=== PATIENT | male | born 1980 | race Caucasian/White ===

== ENCOUNTER 2016-11-13 23:58 | Emergency (ER) | payer OTHER ==
[2016-11-14 00:52] VITALS: BP 109/62; PULSE 71; TEMP 97.9; BMI 27.3
[2016-11-14] MEDS ORDERED: FLUORESCEIN NA 1 EA STRIP OD ONE (00:59)
[2016-11-14] MEDS ORDERED: TETRACAINE 0.5% HCL 0.6ML DROPPER.BOTTLE OD ONE (00:59)
[2016-11-14] MEDS ORDERED: TETRACAINE 0.5% OPHTH SOLN 2 ML BOTTLE ONE (01:01)
[2016-11-14] MEDS ORDERED: FLUORESCEIN NA 1 EA STRIP ONE ×2 (01:01→01:02)
--- NOTE | 2016-11-14 01:21 | PDOC ---
History of Present Illness - General History Source: Patient Exam Limitations: No Limitations <Matthieu Sands - Last Filed: 11/14/16 01:22> - General History Source: Patient Exam Limitations: No Limitations - History of Present Illness Initial Comments: 11/14/16 01:26 The patient is a 36 year old male with a significant past medical history of left eye blepharitis, who presents to the ER with right eye pain for a few days. Patient states he was diagnosed by an eye doctor with blepharitis of the right eye on October 27. He states he has a stye and a cyst on the left eye. Patient comes to the ER with right eye pain, concerned that he may have blepharitis of the right eye. Patient states the discomfort of the right eye is not similar to that of the left. Patient states one of the cysts of the left eye popped earlier today. Patient reports taking polytrim and keflex for the blepharitis. He denies contact lens use. Denies changes in vision Denies headache Denies dizziness Denies discharge from eye <Eugenia Londono - Last Filed: 11/14/16 01:27> - General Chief Complaint: Eye Problem Stated Complaint: EYE PROBLEM Time Seen by Provider: 11/14/16 00:51 Past History - Past Medical History Asthma: Yes - Psycho/Social/Smoking Cessation Hx Anxiety: No Suicidal Ideation: No Smoking History: Never smoked Have you smoked in the past 12 months: Yes Number of Cigarettes Smoked Daily: 3 Hx Alcohol Use: No Drug/Substance Use Hx: Yes (daily) Substance Use Type: Marijuana <Matthieu Sands - Last Filed: 11/14/16 01:22> <Eugenia Londono - Last Filed: 11/14/16 01:27> - Past Medical History Allergies/Adverse Reactions: Allergies Allergy/AdvReac Type Severity Reaction Status Date / Time No Known Allergies Allergy Verified 11/14/16 00:46 Home Medications: Ambulatory Orders Bacitracin/Polymyxin B Sulfate [Polycin Eye Ointment] 3.5 gm OP Q4H #1 applic Cephalexin [Keflex] 500 mg PO QID 11/14/16 Ibuprofen [Motrin -] 600 mg PO QID PRN 11/14/16 Polymyxin B Sulfate/Tmp [Polytrim Opthalmic Solution -] 1 drop OP Q3H #1 drops 11/14/16 Review of Systems - Review of Systems Able to Perform ROS?: Yes Comments:: 11/14/16 01:26 GENERAL/CONSTITUTIONAL: No fever or chills. No weakness. HEAD, EYES, EARS, NOSE AND THROAT: (+) right eye pain. No change in vision. No ear pain or discharge. No sore throat. CARDIOVASCULAR: No chest pain or shortness of breath. RESPIRATORY: No cough, wheezing, or hemoptysis. GASTROINTESTINAL: No nausea, vomiting, diarrhea or constipation. GENITOURINARY: No dysuria, frequency, or change in urination. MUSCULOSKELETAL: No joint or muscle swelling or pain. No neck or back pain. SKIN: No rash NEUROLOGIC: No headache, vertigo, loss of consciousness, or change in strength/ sensation. ENDOCRINE: No increased thirst. No abnormal weight change. HEMATOLOGIC/LYMPHATIC: No anemia, easy bleeding, or history of blood clots. ALLERGIC/IMMUNOLOGIC: No hives or skin allergy. <Eugenia Londono - Last Filed: 11/14/16 01:27> *Physical Exam - Vital Signs Last Vital Signs Temp Pulse Resp BP Pulse Ox 97.9 F 71 16 109/62 98 11/14/16 00:46 11/14/16 00:46 11/14/16 00:46 11/14/16 00:46 11/14/16 00:46 <Matthieu Sands - Last Filed: 11/14/16 01:22> - Vital Signs Last Vital Signs Temp Pulse Resp BP Pulse Ox 97.9 F 71 16 109/62 98 11/14/16 00:46 11/14/16 00:46 11/14/16 00:46 11/14/16 00:46 11/14/16 00:46 - Physical Exam Comments: 11/14/16 01:26 GENERAL: Awake, alert, and fully oriented, in no acute distress HEAD: No signs of trauma EYES: OU 20/10 , No foreign body identified, No stye or blepharitis appreciated , Fluorescein uptake along inferior portion of sclera, No dendritic lesions. PERRLA, EOMI, sclera anicteric, conjunctiva clear ENT: Auricles normal inspection, hearing grossly normal, nares patent, oropharynx clear without exudates. Moist mucosa NECK: Normal ROM, supple, no lymphadenopathy, JVD, or masses LUNGS: Breath sounds equal, clear to auscultation bilaterally. No wheezes, and no crackles HEART: Regular rate and rhythm, normal S1 and S2, no murmurs, rubs or gallops NEUROLOGICAL: Cranial nerves II through XII grossly intact. Normal speech, normal gait SKIN: Warm, Dry, normal turgor, no rashes or lesions noted. <UtsShashia - Last Filed: 11/14/16 01:27> Medical Decision Making - Medical Decision Making 11/14/16 01:16 A portion of this note was documented by scribe services under my direction. I have reviewed the details of the note, within reason, and agree with the documentation with the following case summary and management plan written by me. Patient treated in the ED. Nursing notes are reviewed and incorporated into the medical decision-making. Vital signs reviewed. Peripheral IV access obtained by the nurse, laboratory studies are drawn and sent, reviewed and interpreted by myself. Vital Signs Temp Pulse Resp BP Pulse Ox 97.9 F 71 16 109/62 98 11/14/16 00:46 11/14/16 00:46 11/14/16 00:46 11/14/16 00:46 11/14/16 00:46 36-year-old male with no past medical history presents with right eye irritation. In October 27, patient was having left eye irritation and had developed a left stye and was seen in emergency department. He was encouraged have warm compresses. Was referred to an mult au matic operator where he was diagnosed with blepharitis. He was then placed on Keflex and Polytrim ointment which she is currently taking. However, noted today that he is developing right eye irritation was concerned for blepharitis and came to the ED. He reports she's been rubbing his eye. Patient has no visual acuity changes. He wears no contact lenses. There is no dendritic uptake or Maira sign. He does have abrasion along the sclera concerning for scleral abrasion. We'll encourage patient to Polytrim and his other eye. Patient is appointment with an mult au matic operator in 3 days. He verbalizes understanding agrees with plan. I discussed the physical exam findings, ancillary test results and final diagnoses with the patient. I answered all of the patient's questions. The patient was satisfied with the care received and felt comfortable with the discharge plan and treatment plan. The patient will call their primary care physician within 24 hours to arrange follow-up and will return to the Emergency Department with any new, persistant or worsening symptoms. <Matthieu Sands - Last Filed: 11/14/16 01:22> *DC/Admit/Observation/Transfer - Discharge Dispostion Admit: No <Matthieu Sands - Last Filed: 11/14/16 01:22> - Attestations Scribe Attestion: 11/14/16 01:27 Documentation prepared by Eugenia Londono, acting as back office medical assistant for Matthieu Sands MD. <Eugenia Londono - Last Filed: 11/14/16 01:27> Diagnosis at time of Disposition: Abrasion of sclera of right eye Qualifiers: Encounter type: initial encounter Qualified Code(s): S05.8X1A - Other injuries of right eye and orbit, initial encounter - Discharge Dispostion Disposition: HOME Condition at time of disposition: Improved - Prescriptions Prescriptions: Bacitracin/Polymyxin B Sulfate [Polycin Eye Ointment] 3.5 gm OP Q4H #1 applic Polymyxin B Sulfate/Tmp [Polytrim Opthalmic Solution -] 1 drop OP Q3H #1 drops - Patient Instructions Printed Discharge Instructions: DI for Corneal Abrasion Additional Instructions: Please apply the antibiotic ointment to your eye as prescribed. Follow up with the eye doctor this .
== END 2016-11-14 01:25 | disposition home or self-care (01) ==
LOC: JER 23:58
DX: S05.8X1A Other injuries of right eye and orbit, initial encounter (principal); X58.XXXA Exposure to other specified factors, initial encounter; Y93.9 Activity, unspecified; Y92.039 Unspecified place in apartment as the place of occurrence of the external cause
CPT/HCPCS: 99281-25

== ENCOUNTER 2016-12-13 23:40 | Emergency (ER) | payer OTHER ==
[2016-12-13 23:55] VITALS: BP 123/71; PULSE 74; TEMP 97.5; BMI 28.0
--- NOTE | 2016-12-14 03:18 | PDOC ---
History of Present Illness - General Chief Complaint: Eye Problem Stated Complaint: EYE PROBLEM Time Seen by Provider: 12/14/16 02:25 History Source: Patient Exam Limitations: No Limitations - History of Present Illness Initial Comments: 12/14/16 03:10 36yo Male patient presents to ED c/o right eye pain, swelling and tenderness to face. Patient states he was recently treated by ophthalmology for blepharitis with abx/dextramethasone eye drop but is not having tenderness and mild swelling to cheek bone. He denies fever, trauma, injury, or any other complaints at this time. Past History - Travel Traveled outside of the country in the last 30 days: No Close contact w/someone who was outside of country & ill: No - Past Medical History Allergies/Adverse Reactions: Allergies Allergy/AdvReac Type Severity Reaction Status Date / Time No Known Allergies Allergy Verified 12/13/16 23:55 Home Medications: Ambulatory Orders Bacitracin/Polymyxin B Sulfate [Polycin Eye Ointment] 3.5 gm OP Q4H #1 applic Cephalexin [Keflex] 500 mg PO QID 11/14/16 Ibuprofen [Motrin -] 600 mg PO QID PRN 11/14/16 Polymyxin B Sulfate/Tmp [Polytrim Opthalmic Solution -] 1 drop OP Q3H #1 drops 11/14/16 Amoxicillin/Potassium Clav [Augmentin 875-125 Tablet] 1 each PO Q12H #10 tablet 12/14/16 Asthma: Yes Other medical history: eye problems-bliforiosis - Psycho/Social/Smoking Cessation Hx Anxiety: No Suicidal Ideation: No Smoking History: Current every day smoker Have you smoked in the past 12 months: Yes Number of Cigarettes Smoked Daily: 10 Information on smoking cessation initiated: No Hx Alcohol Use: No Drug/Substance Use Hx: Yes (daily) Substance Use Type: Marijuana Review of Systems - Review of Systems Able to Perform ROS?: Yes Is the patient limited Yakut proficient: No Constitutional: No: Fever HEENTM: Yes: Ear Pain (right). No: Eye Pain, Blurred Vision, Double Vision, Ear Discharge, Nose Congestion, Throat Pain, Throat Swelling, Mouth Pain, Mouth Swelling Respiratory: No: Cough, Orthopnea, Shortness of Breath, Wheezing Cardiac (ROS): No: Chest Pain All Other Systems: Reviewed and Negative *Physical Exam - Vital Signs Last Vital Signs Temp Pulse Resp BP Pulse Ox 97.5 F L 74 18 123/71 99 12/13/16 23:50 12/13/16 23:50 12/13/16 23:50 12/13/16 23:50 12/13/16 23:50 - Physical Exam General Appearance: Yes: Nourished, Appropriately Dressed. No: Apparent Distress, Mild Distress, Moderate Distress, Severe Distress HEENT: positive: EOMI, LEATHA, Normal ENT Inspection, Normal Voice, Symmetrical, TMs Normal, Pharynx Normal, Orbits (Mild Swelling to right inferior maxillary/ orbit bone w/ mild tenderness.). negative: Pharyngeal Erythema, Tonsillar Exudate, Tonsillar Erythema, Nasal Congestion, Rhinorrhea, Sinus Tenderness, TM Bulging, TM Dull, TM Erythema Neck: positive: Trachea midline, Supple. negative: Stridor, Lymphadenopathy (R) , Lymphadenopathy (L) Respiratory/Chest: positive: Lungs Clear, Normal Breath Sounds. negative: Respiratory Distress, Accessory Muscle Use, Labored Respiration, Rapid RR, Rales , Rhonchi, Stridor, Wheezing Cardiovascular: positive: Regular Rhythm, Regular Rate Musculoskeletal: positive: Normal Inspection. negative: CVA Tenderness, Decreased Range of Motion, Vertebral Tenderness Extremity: positive: Normal Capillary Refill, Normal Inspection, Normal Range of Motion. negative: Pedal Edema, Swelling, Calf Tenderness, Erythema, Inflammation Integumentary: positive: Normal Color, Dry, Warm. 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, Fully Oriented, Alert, Normal Mood/ Affect, Normal Response, Motor Strength 5/5 *DC/Admit/Observation/Transfer Diagnosis at time of Disposition: Ear pain, right, Maxillary pain - Discharge Dispostion Disposition: HOME Condition at time of disposition: Stable Admit: No - Prescriptions Prescriptions: Amoxicillin/Potassium Clav [Augmentin 875-125 Tablet] 1 each PO Q12H #10 tablet - Referrals Referrals: Rody Mooney MD [Staff Physician] - - Patient Instructions Printed Discharge Instructions: DI for Ear Pain-Adult Additional Instructions: FOLLOW UP WITH YOUR BENDER MACHINE OPERATOR THIS WEEK FOR FURTHER EVALUATION. CALL TO SCHEDULE APPOINTMENT OR FOLLOW UP WITH DR. ROE. TAKE MEDICATIONS PRESCRIBED. RETURN IF ANY CONCERNS FOR FURTHER EVALUATION. Print Language: SWEDISH - Post Discharge Activity Work/School Note: Back to Work
== END 2016-12-14 03:36 | disposition home or self-care (01) ==
LOC: JER 23:40
DX: H92.01 Otalgia, right ear (principal)
CPT/HCPCS: 99281-25

== ENCOUNTER 2019-01-19 11:05 | Emergency (ER) | payer OTHER ==
[2019-01-19 11:14] VITALS: BP 103/57; PULSE 69; TEMP 97.4; BMI 27.3
[2019-01-19] MEDS ORDERED: IBUPROFEN 400 MG TABLET (FP) PO ONE (11:46)
--- NOTE | 2019-01-19 12:17 | PDOC ---
History of Present Illness - General Chief Complaint: Abscess Boil Stated Complaint: PAIN / CYST Time Seen by Provider: 01/19/19 11:37 Past History - Past Medical History Allergies/Adverse Reactions: Allergies Allergy/AdvReac Type Severity Reaction Status Date / Time No Known Allergies Allergy Verified 01/19/19 11:14 Home Medications: Ambulatory Orders Bacitracin/Polymyxin B Sulfate [Polycin Eye Ointment] 3.5 gm OP Q4H #1 applic Cephalexin [Keflex] 500 mg PO QID 11/14/16 Ibuprofen [Motrin -] 600 mg PO QID PRN 11/14/16 Polymyxin B Sulfate/Tmp [Polytrim Opthalmic Solution -] 1 drop OP Q3H #1 drops 11/14/16 Amoxicillin/Potassium Clav [Augmentin 875-125 Tablet] 1 each PO Q12H #10 tablet 12/14/16 Clindamycin [Cleocin -] 300 mg PO Q8H #21 capsule 01/19/19 L. Rhamnosus GG/Inulin [Culturelle Probiotics Capsule] 1 each PO DAILY #8 capsule 01/19/19 Asthma: Yes COPD: No - Suicide/Smoking/Psychosocial Hx Smoking History: Never smoked Have you smoked in the past 12 months: Yes Number of Cigarettes Smoked Daily: 10 Hx Alcohol Use: No Drug/Substance Use Hx: Yes (daily) Substance Use Type: Marijuana *Physical Exam - Vital Signs Last Vital Signs Temp Pulse Resp BP Pulse Ox 97.4 F L 69 18 103/57 L 99 01/19/19 11:08 01/19/19 11:08 01/19/19 11:08 01/19/19 11:08 01/19/19 11:08 - Physical Exam General Appearance: Yes: Appropriately Dressed, Apparent Distress HEENT: positive: Normal Voice Neck: positive: Supple Respiratory/Chest: negative: Respiratory Distress Extremity: positive: Other (fluctuant mass over R olecranon process, no sig ttp , no hot, red joint, FROMI with no pain) Integumentary: positive: Dry, Warm, Other (2x1cm induration to to gluteal cleft , no overlying erythema) Neurologic: positive: Fully Oriented, Alert, Normal Mood/Affect Procedures - Incision and Drainage I&D Site: Left: Buttock (pilonidal) Anesthesia: 1% Lidocaine Volume(ml): 5 Blade Size: 10 Attempts: 1 (scant pus, mostly blood) Plain Packing: No Dressing: Yes Medical Decision Making - Medical Decision Making 01/19/19 12:20 38 yo male, no sig hx, here w/ multiple complaints including pain/swelling to R elbow after weight lifting 6 days ago. States he lifted more weights than usual. Has been placing both hot and cold packs to site and taking motrin and reports that swelling has greatly improved. Patient also reports having history of pilonidal cyst and that for the past 2 weeks, pain to site has increased. No fever or chills. Also complaining of persistent pain/numbness to L thumb s/p injury 1 month ago where he sustained puncture wound from a pen See exam Pilonidal abscess S/p I&D w/ scant pus No packing placed as wound superficial -tetanus UTD -Dc w/ abx -Wound check as needed -surgery f/u for possible cyst removal R olecranon bursitis in setting of working out Improving w/ warm compresses/NSAID use at home No hot, red joint and no pain to joint w/ ROM to suspect joint effusion or infxn No h/o gout -BRYAN placed -to cont NSAIDs -return as needed Persistent numbness/pain to R thumb s/p puncture wound 1 month ago Exam unremarkable -Dc w/ hand f/u *DC/Admit/Observation/Transfer Diagnosis at time of Disposition: Numbness of left thumb, Pilonidal abscess Bursitis Qualifiers: Bursitis location: elbow Elbow bursitis location: olecranon bursitis Laterality : right Qualified Code(s): M70.21 - Olecranon bursitis, right elbow - Discharge Dispostion Disposition: HOME Condition at time of disposition: Good - Prescriptions Prescriptions: Clindamycin [Cleocin -] 300 mg PO Q8H #21 capsule L. Rhamnosus GG/Inulin [Culturelle Probiotics Capsule] 1 each PO DAILY #8 capsule - Referrals Referrals: Gume Naik MD [Primary Care Provider] - Tito Barnhart MD [Staff Physician] - Jose J Pantoja MD [Staff Physician] - - Patient Instructions Printed Discharge Instructions: Pilonidal Cyst, Bursitis Additional Instructions: You were seen for multiple conditions today: 1) Olecranon (elbow) bursitis. A bursa is a fluid-filled, saclike structure lined by synovial membrane which forms in clefts between mobile structures in the musculoskeletal system. From a simplistic point of view, the deeper bursae serve as "ball bearings," allowing the muscles to glide over each other and over prominences of bone. The more superficial bursae, such as the olecranon, ischial, or prepatellar bursa, serve as "cushions" between the skin and the bone. The term "bursitis" implies inflammation. Treatment is protection joint and NSAIDs such as motrin. Keep Bryan in place for comfort and apply heat to assist with swelling 2) Persistent L thumb numbness/discomfort after old injury. There is no ED intervention needed today. Please follow up with Dr Barnhart of ortho 3) You had a pilinonal abscess drained today. No packing was placed as wound was superficial. Please keep wound covered, clean and dry. You can leave wound covered when crusts form form. Take antibiotics as directed For removal for cyst, follow up with Dr Pantoja of surgery Please return for worsening of symptoms as discussed - Post Discharge Activity
== END 2019-01-19 12:26 | disposition home or self-care (01) ==
LOC: JERFT 11:05
PROC: 0H98XZZ Drainage of Buttock Skin, External Approach (ICD-10-PCS; principal; 2019-01-19)
DX: L05.01 Pilonidal cyst with abscess (principal); R20.0 Anesthesia of skin; M70.21 Olecranon bursitis, right elbow
CPT/HCPCS: 99281-25

== ENCOUNTER 2021-02-10 18:12 | Emergency (ER) | payer OTHER ==
[2021-02-10] MEDS ORDERED: RALTEGRAVIR POTASSIUM 400 MG TAB PO ONE (18:14)
[2021-02-10] MEDS ORDERED: EMTRICITABINE 200MG/TENOFOVIR 300MG PO ONE (18:14)
[2021-02-10 18:29] VITALS: BP 118/70; PULSE 18; TEMP 98.6; BMI 29.5
[2021-02-10] MEDS ORDERED: HIV POST EXPOSURE PROPHYLAXIS KIT PO ONE (18:49)
[2021-02-10 19:34] LABS: BASO % 0.4 % (0-2.0); HEMATOCRIT 40.4 % (35.4-49); HEMOGLOBIN 13.8 GM/dL (11.7-16.9); LYMPH % 24.3 % (8-40); MCH 29.9 pg (25.7-33.7); MCHC 34.2 g/dl (32.0-35.9); MEAN CELL VOLUME 87.3 fl (80-96); MEAN PLT VOLUME 7.8 fl (7.5-11.1); MONO % 14.6 % (3.8-10.2); NEUT % 60.7 % (42.8-82.8); PLATELET COUNT 178 10^3/uL (134-434); RBC 4.63 M/mm3 (4.00-5.60); WHITE BLOOD COUNT 5.8 K/mm3 (4.0-10.0)
[2021-02-10 19:57] LABS: ALBUMIN 3.8 g/dl (3.4-5.0); BLOOD UREA NITROGEN 15.2 mg/dL (7-18)
[2021-02-10 20:00] LABS: CREATININE 1.2 mg/dL (0.55-1.3)
[2021-02-10 20:01] LABS: BILIRUBIN,TOTAL 0.4 mg/dL (0.2-1); TOT PROT 7.7 g/dl (6.4-8.2)
[2021-02-10 20:23] LABS: SYPHILIS W/ RPR CONF NON-REACTIVE (NONREACTIVE)
[2021-02-10 20:51] LABS: HIV INTERPRETATION NEGATIVE (NEGATIVE)
== END 2021-02-10 21:51 | disposition home or self-care (01) ==
LOC: JER 18:12
DX: Z20.2 Contact with and (suspected) exposure to infections with a predominantly sexual mode of transmission (principal)
CPT/HCPCS: 36415; 80053; 82465; 84478; 85025; 86704; 86706; 86780; 86803; 87340; 87389; 87517; 99283-25